=== PATIENT | female | born 1970 | race Caucasian/White ===

== ENCOUNTER 2016-05-29 10:50 | Emergency (ER) | payer OTHER ==
[~2016-05-29] VITALS: Ht 175.3 cm; Wt 165.0 kg
[~2016-05-29 10:50] MED LIST: MECLIZINE HCL25 MG PO; ORACEA40 MG PO; VALIUM2 MG PO; ZOFRAN ODT4 MG PO
[2016-05-29] MEDS ORDERED: DAILY MULTIPLE1 EACH PO (10:57)
[2016-05-29 11:37] LABS: HEMATOCRIT 45.7 % (36.0-46.0); MCH 28.9 PG (29.0-34.0); MCHC 33.9 G/DL (30.0-36.0); MCV 85.1 FL (83-99); PLATELET COUNT 246 K/uL (156-360); RBC DIS.WIDTH-CV 13.1 % (11.8-14.6); RBC DIS.WIDTH-SD 40.9 % (39-53); RED BLOOD COUNT 5.37 M/uL (3.80-5.20); WHITE BLOOD COUNT 11.1 K/uL (4.1-10.2)
[2016-05-29 11:49] LABS: CHLORIDE 106 mEq/L (99-109); POTASSIUM 4.4 mEq/L (3.7-5.4); SODIUM 139 mEq/L (136-147)
[2016-05-29 11:51] LABS: GLUCOSE 122 mg/dL (70-99)
[2016-05-29 11:53] LABS: ANION GAP 14 MEQ/L (2-14); TOTAL BILIRUBIN 0.5 mg/dL (0.0-1.0)
[2016-05-29 11:55] LABS: ALKALINE PHOSPHATASE 77 IU/L (3-129); GFR ESTIMATE (CALCULATED) > 59 mL/min/
[2016-05-29 11:56] LABS: UREA NITROGEN (BUN) 19 mg/dL (9-23)
[2016-05-29 11:59] LABS: LIPASE 14 U/L (1.0-51.0)
[2016-05-29 12:07] LABS: QUANTITATIVE HCG < 4.0 MIU/ML
[2016-05-29] MEDS ORDERED: ANTIVERT25 MG PO (13:52)
[2016-05-29] MEDS ORDERED: ZOFRAN ODT4 MG PO (13:52)
[2016-05-29 14:15] VITALS: BP 112/76
== END 2016-05-29 14:18 | disposition home or self-care (01) ==
LOC: EME → EDBD 10:50 → EME 10:50
PROVIDERS: Nurse Practitioner Family
DX: R42 Dizziness and giddiness (principal); R11.2 Nausea with vomiting, unspecified; D72.829 Elevated white blood cell count, unspecified; R73.9 Hyperglycemia, unspecified
CPT/HCPCS: 80053; 83690; 84702; 85027; 99281; 99284; J3360; J7030